=== PATIENT | female | born 1965 | race Hispanic/Latino ===

== ENCOUNTER 2019-10-18 13:17 | Emergency (ER) | payer SELFPAY ==
--- NOTE | 2019-10-18 13:53 | Event Note ---
ED Screening Note Date of service: 10/18/19 Time: 13:52 ED Screening Note: Pt complains of left knee pain x 3 weeks denies injury This initial assessment/diagnostic orders/clinical plan/treatment(s) is/are subject to change based on patients health status, clinical progression and re-assessment by fellow clinical providers in the ED. Further treatment and workup at subsequent clinical providers discretion. Patient/guardian urged not to elope from the ED as their condition may be serious if not clinically assessed and managed. Initial orders include: xr
[2019-10-18 13:54] VITALS: BP 126/80
--- NOTE | 2019-10-18 15:09 | XRay Report ---
EXAMINATION: Left knee radiograph, 3 views CLINICAL INFORMATION: Left knee pain for several months. No history of trauma COMPARISON: None. FINDINGS: There are moderately advanced degenerative changes of the left knee without evidence for ac familia fracture. No focal soft tissue swelling is identified. Atherosclerotic vascular calcifications ar e noted. IMPRESSION: Moderately advanced degenerative change of the left knee. Signer Name: Trina Jones MD Signed: 10/18/2019 3:05 PM Workstation Name: [id number]
[2019-10-18] MEDS ORDERED: dexAMETHasone 20 MG/5 ML VIAL IM ONE (16:38)
[2019-10-18] MEDS ORDERED: KETOROLAC 60 MG/2 ML INJ IM ONE (16:38)
--- NOTE | 2019-10-18 16:53 | Emergency Department Report ---
ED Extremity Problem HPI - General Chief complaint: Extremity Problem,Nontraumatic Stated complaint: LT KNEE PAIN Time Seen by Provider: 10/18/19 13:51 Source: patient Mode of arrival: Wheelchair Limitations: No Limitations - History of Present Illness Initial comments: 54-year-old female with a past medical history of chronic bronchitis, left-sided sciatica, bursitis presents to the hospital complaining of intermittent left knee pain for several months that have been worse for the last 3 weeks. Pain is worse on the medial side of the knee and with flexion to 90 degrees. No recent trauma or injury reported. Patient denies fever joint warmth or redness Severity scale (0 -10): 7 - Related Data Previous Rx's Medication Instructions Recorded Last Taken Type Ibuprofen [Motrin] 800 mg PO Q8HR PRN #20 tablet 10/18/19 Unknown Rx Allergies Allergy/AdvReac Type Severity Reaction Status Date / Time No Known Allergies Allergy Unverified 10/18/19 13:25 ED Review of Systems ROS: Stated complaint: LT KNEE PAIN Other details as noted in HPI Comment: All other systems reviewed and negative ED Past Medical Hx - Past Medical History Previous Medical History?: Yes Additional medical history: Bursitis. Bronchitis - Surgical History Past Surgical History?: No - Social History Smoking Status: Current Every Day Smoker Substance Use Type: None - Medications Home Medications: Home Medications Medication Instructions Recorded Confirmed Last Taken Type Ibuprofen [Motrin] 800 mg PO Q8HR PRN #20 tablet 10/18/19 Unknown Rx ED Physical Exam - General Limitations: No Limitations - Other Other exam information: General: No acute distress Head: Atraumatic Eyes: normal appearance ENT: Moist mucous membranes Neck: Normal appearance, no midline tenderness Chest: Clear to auscultation bilaterally CV: Regular rate and rhythm Abdomen: Soft, normal bowel sounds, nontender, nondistended, no rebound or guarding Back: Normal inspection Extremity: Minimal anterior left knee swelling. Tenderness to palpation of the medial knee joint. Full range of motion without joint instability upon valgus, varus stress, anterior posterior drawer movement. No warmth or erythema. No calf swelling or tenderness Neuro: Alert O x 3, no facial asymmetry, speech clear, no gross motor sensory deficit Psych: Appropriate behavior Skin: No rash ED Course Vital Signs 10/18/19 13:51 Temperature 98.1 F Pulse Rate 98 H Respiratory 20 Rate Blood Pressure 126/80 Blood Pressure 126/80 [Right] O2 Sat by Pulse 94 Oximetry ED Medical Decision Making - Radiology Data Radiology results: report reviewed EXAMINATION: Left knee radiograph, 3 views CLINICAL INFORMATION: Left knee pain for several months. No history of trauma COMPARISON: None. FINDINGS: There are moderately advanced degenerative changes of the left knee without evidence for acute fracture. No focal soft tissue swelling is identified. Atherosclerotic vascular calcifications are noted. IMPRESSION: Moderately advanced degenerative change of the left knee - Medical Decision Making X-ray reveals moderately advanced degenerative changes suggestive of arthritis. Patient received 1 shot of Decadron and anti-inflammatory in the ED. Outpatient orthopedic follow-up advised - Differential Diagnosis Arthritis, bursitis, knee sprain Critical Care Time: No Critical care attestation.: If time is entered above; I have spent that time in minutes in the direct care of this critically ill patient, excluding procedure time. ED Disposition Clinical Impression: Arthritis of knee, left Disposition: [id number] TO HOME OR SELFCARE Is pt being admited?: No Does the pt Need Aspirin: No Condition: Stable Instructions: Osteoarthritis (ED), Knee Pain (ED) Additional Instructions: Take the medication as prescribed. Follow-up with your doctor or doctor/clinic provided. Return if symptoms worsen as indicated by your discharge instructions. Prescriptions: Ibuprofen [Motrin] 800 mg PO Q8HR PRN #20 tablet PRN Reason: Pain , Severe (7-10) Referrals: KATARINA CHINCHILLA MD [Staff Physician] - 3-5 Days Time of Disposition: 16:55
== END 2019-10-18 15:15 | disposition home or self-care (01) ==
LOC: ED 13:17
DX: M13.862 Other specified arthritis, left knee (principal); M54.32 Sciatica, left side; F17.200 Nicotine dependence, unspecified, uncomplicated; Z79.899 Other long term (current) drug therapy
CPT/HCPCS: 73562; 96372; 99283; J1100; J1885